=== PATIENT | male | born 1965 | race Caucasian/White ===

== ENCOUNTER 2019-07-29 09:42 | Emergency (ER) | payer BC ==
--- NOTE | 2019-07-29 09:55 | EDM.PDOC ---
ED HPI GENERAL MEDICAL PROBLEM - General Chief Complaint: Upper Extremity Injury/Pain Stated Complaint: LT HAND MIDDLE FINGER AND RING FINGER INJURY Time Seen by Provider: 07/29/19 09:55 - History of Present Illness INITIAL COMMENTS - FREE TEXT/NARRATIVE: 54-year-old male presents the emergency room with a left hand injury. About an hour prior to arrival patient was working on a tractor seat. There was a spring under quite a bit of pressure he thought he had secured this adequately but it released catching the end of this third and fourth digits. He is developed some swelling in this area and had significant bleeding after it happened. He is unsure when his last tetanus shot was. Left Hand Pain Score (Numeric/FACES): 5 - Related Data Allergies Allergy/AdvReac Type Severity Reaction Status Date / Time No Known Allergies Allergy Verified 07/29/19 10:00 Home Meds: Home Meds Acetaminophen/HYDROcodone [Lynn 325-5 MG] 1 tab PO Q4H PRN #10 tablet 07/29/19 [Rx] Aspirin [Ecotrin EC] 81 mg PO DAILY 07/29/19 [History] Cephalexin [Keflex] 500 mg PO Q6H #39 capsule 07/29/19 [Rx] Clopidogrel [Plavix] 75 mg PO DAILY 07/29/19 [History] Metoprolol Tartrate 25 mg PO DAILY 07/29/19 [History] Rosuvastatin [Crestor] 5 mg PO DAILY 07/29/19 [History] lisinopriL [Lisinopril] 10 mg PO DAILY 07/29/19 [History] Review of Systems - Review of Systems Review Of Systems: See Below Constitutional: Reports: No Symptoms Respiratory: Reports: No Symptoms Cardiovascular: Reports: No Symptoms ED EXAM, GENERAL - Physical Exam Exam: See Below Exam Limited By: No Limitations General Appearance: Alert, No Apparent Distress Respiratory/Chest: No Respiratory Distress, Lungs Clear, Normal Breath Sounds Cardiovascular: Regular Rate, Rhythm, No Edema, No Murmur Extremities: Other (Examination of his left hand shows a fairly normal hand and to get to the distal ends of the third and fourth digits. He has disrupted the nail plate in both of these digits he is got a significant laceration on the middle finger and ecchymosis on both fingers. Sensation is fully intact in both fingers. Will evaluate tendon function after the x-rays are reviewed.) ED TRAUMA EXTREMITY PROCEDURES - Laceration/Wound Repair Left Digit - 3rd (Middle) Lac/Wound Length In cm: 1.2 Appearance: Subcutaneous, Stellate, Irregular, Clean, Other (The smaller laceration was 0.7 cm) Anesthetic Type: Digital Local Anesthesia - Lidocaine (Xylocaine): 1% Plain, Other (Both involved fingers and digital blocks of roughly 2 cc of 1% lidocaine without epinephrine) Local Anesthetic Volume: 2cc Skin Prep: Chlorhexidine (Hibiciens) Exploration/Debridement/Repair: Wound Explored, Minimal Debridement Closed With: Sutures Suture Size: 4-0 # of Sutures: 4 (Smaller laceration had 2 simple sutures of 4-0 nylon placed) Suture Type: Nylon, Other (The 2 lacerations the patient had a total of 6 sutures placed) Tetanus Status Addressed: Yes (Tetanus updated) Complications: No - Splinting Left 4th Digit Splint Material: Aluminum-Foam Applied & Form Fitted By: Provider, Nurse Complications: No Course - Vital Signs Last Recorded V/S: Last Vital Signs Temp 36.9 C 07/29/19 09:55 Pulse 63 07/29/19 09:55 Resp 16 07/29/19 09:55 BP 147/88 H 07/29/19 09:55 Pulse Ox 98 07/29/19 09:55 - Orders/Labs/Meds Orders: Active Orders 24 hr Category Date Time Status Vaccines to be Administered [RC] PER UNIT ROUTINE Care 07/29/19 10:07 Active Fingers Fourth Digit Lt F3 [CR] Stat Exams 07/29/19 10:05 Taken Fingers Third Digit Lt F2 [CR] Stat Exams 07/29/19 10:05 Taken Meds: Medications Discontinued Medications Generic Name Dose Route Start Last Admin Trade Name Freq PRN Reason Stop Dose Admin Cephalexin 500 mg 07/29/19 11:23 07/29/19 11:33 Keflex PO 07/29/19 11:24 500 mg ONETIME ONE Administration Diphtheria/Tetanus/Acell Pertussis 0.5 ml 07/29/19 10:05 07/29/19 10:25 Adacel IM 07/29/19 10:06 0.5 ml .ONCE ONE Administration Lidocaine HCl 10 ml 07/29/19 10:53 07/29/19 11:33 Xylocaine 1% INJECT 07/29/19 10:54 10 ml ONETIME ONE Administration - Re-Assessments/Exams Free Text/Narrative Re-Assessment/Exam: 07/29/19 12:46 X-ray examination of the affected digits show tuft fractures. The ring finger did not have any associated laceration however had a partially proximal avulsed nail plate this was put back into position without difficulty and stayed in position. The middle finger had a small partially avulsed plate the ulnar aspect could not be put back into position and was trimmed back with the remaining nail plate to stay in position. The patient was started on Keflex prior to repair. Patient had his tetanus updated. Departure - Departure Time of Disposition: 12:55 Disposition: Home, Self-Care 01 Clinical Impression: Laceration of left middle finger, Open fracture of tuft of distal phalanx of finger - Discharge Information Prescriptions: Acetaminophen/HYDROcodone [Lynn 325-5 MG] 1 tab PO Q4H PRN #10 tablet PRN Reason: Pain Cephalexin [Keflex] 500 mg PO Q6H #39 capsule Referrals: PCP,None [Primary Care Provider] - Forms: ED Department Discharge, ED Return to Work/School Form Additional Instructions: Return to the emergency room with any questions problems or worsening symptoms. Keep your hand elevated as much as you can for the next several days. Follow- up with the L&I doctor early this next week. Use Tylenol as needed for pain use the pain pills for pain not relieved just with Tylenol. Keep an eye on your Tylenol dose that should not exceed 4000 mg a day the prescription pain pills each contains 325 mg of Tylenol. Keep the splints in place suture removal in 12 days. Take the antibiotics until all gone. Sepsis Event Note - Focused Exam Vital Signs: Vital Signs Temp Pulse Resp BP Pulse Ox 07/29/19 09:55 36.9 C 63 16 147/88 H 98 Date Exam was Performed: 07/29/19 Time Exam was Performed: 12:46 - My Orders Last 24 Hours: My Active Orders 07/29/19 10:05 Fingers Fourth Digit Lt F3 [CR] Stat Fingers Third Digit Lt F2 [CR] Stat 07/29/19 10:07 Vaccines to be Administered [RC] PER UNIT ROUTINE - Assessment/Plan Last 24 Hours: My Active Orders 07/29/19 10:05 Fingers Fourth Digit Lt F3 [CR] Stat Fingers Third Digit Lt F2 [CR] Stat 07/29/19 10:07 Vaccines to be Administered [RC] PER UNIT ROUTINE
[2019-07-29] MEDS ORDERED: Diphtheria,Pertussis(Acell),Tetanus Vaccine 0.5 ML Syringe IM ONE (10:05)
[2019-07-29] MEDS ORDERED: Lidocaine 1% 10 ML MDV INJECT ONE (10:53)
[2019-07-29] MEDS ORDERED: Cephalexin 500 MG Cap PO ONE (11:23)
--- NOTE | 2019-07-29 17:09 | CR ---
This study was dictated as part of the 4th finger exam.
--- NOTE | 2019-07-29 17:09 | CR ---
Left 3rd and 4th fingers: Four views centered to the left 3rd and 4th fingers were obtained. Comparison: No previous study. Fractures are seen within the distal phalanx of the left 3rd and 4th fingers. Slight comminution is seen. Alignment remains close to anatomic. No proximal abnormality is identified. Impression: 1. Distal phalanx fractures within the 3rd and 4th digits. Diagnostic code #3 This report was dictated in [place] Standard Time
== END 2019-07-29 13:10 | disposition home or self-care (01) ==
LOC: JD.ED 09:42
DX: S62.633B Displaced fracture of distal phalanx of left middle finger, initial encounter for open fracture (principal); S62.635B Displaced fracture of distal phalanx of left ring finger, initial encounter for open fracture; Z23 Encounter for immunization; Z79.82 Long term (current) use of aspirin; Z79.02 Long term (current) use of antithrombotics/antiplatelets; Z79.899 Other long term (current) drug therapy; W23.0XXA Caught, crushed, jammed, or pinched between moving objects, initial encounter; Y93.89 Activity, other specified; Y99.0 Civilian activity done for income or pay
CPT/HCPCS: 12001; 73140; 90471; 90715; 99283; A9270; J2001